=== PATIENT | female | born 1965 | race Caucasian/White ===

== ENCOUNTER 2016-05-01 07:40 | Outpatient (CLI) | payer OTHER, BC | END 2016-05-01 07:41 | disposition home or self-care (01) | DX: Z00.00 Encounter for general adult medical examination without abnormal findings (principal); R79.9 Abnormal finding of blood chemistry, unspecified; Z72.89 Other problems related to lifestyle; Z13.89 Encounter for screening for other disorder ==

== ENCOUNTER 2016-05-07 07:35 | Outpatient (CLI) | payer OTHER, BC | END 2016-05-07 07:36 | disposition home or self-care (01) | DX: D17.1 Benign lipomatous neoplasm of skin and subcutaneous tissue of trunk (principal); Z80.41 Family history of malignant neoplasm of ovary ==

== ENCOUNTER 2017-04-02 10:30 | Outpatient (CLI) | payer OTHER, BC ==
--- NOTE | 2017-04-02 11:12 | XRAY Report ---
LEFT HAND: 04/02/2017 COMPARISON: None. INDICATION: Left hand pain. TECHNIQUE: Three views of the left hand. FINDINGS: There is a mildly displaced fracture of the second metacarpal. No other acute bone findings are seen. There is overlying soft tissue swelling. No radiopaque foreign body. IMPRESSION: SECOND METACARPAL FRACTURE. JOB #: [id number] EXT JOB #: [id number] [facility]
== END 2017-04-02 10:31 | disposition home or self-care (01) ==
LOC: DI 10:30
PROVIDERS: ATTEND Internal Medicine
DX: S62.301A Unspecified fracture of second metacarpal bone, left hand, initial encounter for closed fracture (principal)

== ENCOUNTER 2017-09-29 11:56 | Outpatient (CLI) | payer OTHER, BC ==
--- NOTE | 2017-09-30 10:54 | Mammography Report ---
DIGITAL SCREENING MAMMOGRAM: 09/29/2017 TECHNIQUE: Bilateral digital CC and MLO projections. COMPARISON: 04/24/2016, 03/28/2015, 02/28/2014, 11/03/2012, 05/29/2011 and 06/27/2009. FINDINGS: There are scattered fibroglandular densities. There is no dominant mass, architectural distortion, skin thickening, suspicious microcalcifications or interval change. IMPRESSION: NEGATIVE. BI-RADS CATEGORY 1 - NEGATIVE. SUGGEST RETURN TO ROUTINE SCREENING IN 12 MONTHS. STANDARD QUALIFYING STATEMENTS: 1. This examination was reviewed with the aid of Computer-Aided Detection (CAD). 2. A negative or benign imaging report should not delay biopsy if clinically suspicious findings are present. Consider surgical consultation if warranted. More than 5% of cancers are not identified by imaging. 3. Dense breasts may obscure an underlying neoplasm. TD: 09/30/2017 09:58
== END 2017-09-29 11:57 | disposition home or self-care (01) ==
LOC: DI.N 11:56
PROVIDERS: ATTEND Physician Assistant Medical
DX: Z12.31 Encounter for screening mammogram for malignant neoplasm of breast (principal)
CPT/HCPCS: 77067

== ENCOUNTER 2018-07-04 14:34 | Outpatient (CLI) | payer OTHER, BC ==
--- NOTE | 2018-07-05 00:29 | XRAY Report ---
Reason: RIB PAIN Procedure Date: 07/04/2018 Accession Number: [id number] / [id number] Procedure: WCP - Ribs Bilat w/Chest 4 View CPT Code: FULL RESULT: EXAM: BILATERAL RIB RADIOGRAPHY EXAM DATE: 07/04/2018 02:57 PM. CLINICAL HISTORY: RIB PAIN. COMPARISON: None. TECHNIQUE: 1 view of the chest and 4 views of the ribs. FINDINGS: Bones: Normal. No fracture or bone lesion. Lungs: No focal opacities. No pneumothorax. No pleural effusions. Mediastinum: Heart and mediastinal contours are unremarkable. Other: None. IMPRESSION: Normal chest and rib radiography. [facility]
== END 2018-07-04 14:35 | disposition home or self-care (01) ==
LOC: DI.WCP 14:34
PROVIDERS: ATTEND Family Medicine
DX: R07.81 Pleurodynia (principal)
CPT/HCPCS: 71111

== ENCOUNTER 2019-03-22 08:37 | Outpatient (CLI) | payer OTHER, BC ==
--- NOTE | 2019-03-22 09:07 | Mammography Report ---
Reason: ROUTINE MAMMO Procedure Date: 03/22/2019 Accession Number: [id number] / [id number] Procedure: MGN - Screening Mammo Dig Bilat CPT Code: Final Report FULL RESULT: EXAM: Screening Mammo Dig Bilat DATE: 03/22/2019 8:59 AM CLINICAL HISTORY: The patient is an asymptomatic 53-year-old female presenting for screening mammography. No known family history of breast cancer. TECHNIQUE: (B) - Bilateral CC and MLO views were obtained. COMPARISON: 05/29/2011 and 06/27/2009 PARENCHYMAL PATTERN: (A) - The breasts demonstrate scattered fibroglandular densities bilaterally. FINDINGS: The pattern of asymmetry is stable given positional variation and interval involution. There are no suspicious masses, calcifications, or areas of distortion. IMPRESSION: Negative examination. BI-RADS category 1. RECOMMENDATION: (ANNUAL) - Recommend routine annual screening mammography. BI-RADS CATEGORY: (1) - Negative. STANDARD QUALIFYING STATEMENTS: 1. This examination was not reviewed with the aid of Computer-Aided Detection (CAD). 2. A negative or benign imaging report should not preclude biopsy if clinically suspicious findings are present. 3. Dense breasts may obscure an underlying neoplasm.
== END 2019-03-22 08:38 | disposition home or self-care (01) ==
LOC: DI.N 08:37
DX: Z12.31 Encounter for screening mammogram for malignant neoplasm of breast (principal)
CPT/HCPCS: 77067

== ENCOUNTER 2020-02-26 15:10 | Outpatient (CLI) | payer BC ==
--- NOTE | 2020-02-27 14:36 | Mammography Report ---
BILATERAL DIGITAL SCREENING MAMMOGRAM 3D/2D: 02/26/2020 CLINICAL: Routine screening. Comparison is made to exams dated: 03/22/2019 mammogram, 09/29/2017 mammogram, 04/24/2016 mammogram, 1 05/29/2014 mammogram, 02/28/2014 mammogram, and 11/03/2012 mammogram - [facility]. The re are scattered fibroglandular elements in both breasts. No significant masses, calcifications, or other findings are seen in either breast. There has been no significant interval change. IMPRESSION: NEGATIVE There is no mammographic evidence of malignancy. A 1 year screening mammogram is recommended. This exam was interpreted at Station ID: [id number]. NOTE: For mammograms, a report in lay terms will be sent to the patient. Approximately 15% of breast malignancies will not be visualized mammographically. In the management of a palpable breast mass, a negative mammogram must not discourage biopsy of a clinically suspicious lesion. Electronically Signed By: Luis hernández/adis:02/26/2020 18:03:10 ACR BI-RADS Category 1: Negative 3341F PARENCHYMAL PATTERN: (A) - The breast(s) demonstrate(s) scattered fibroglandular densities. BI-RADS CATEGORY: (1) - 1 RECOMMENDATION: (ANNUAL) - Recommend routine annual screening mammography. [id number] 1 year screening LATERALITY: (B)
== END 2020-02-26 15:11 | disposition home or self-care (01) ==
LOC: DI.N 15:10
DX: Z12.31 Encounter for screening mammogram for malignant neoplasm of breast (principal)
CPT/HCPCS: 77063; 77067

== ENCOUNTER 2020-03-26 14:10 | Outpatient (CLI) | payer BC | END 2020-03-26 14:11 | disposition home or self-care (01) | LOC: COV 14:10 | PROVIDERS: ATTEND Family Medicine | DX: Z20.828 Contact with and (suspected) exposure to other viral communicable diseases (principal) ==

== ENCOUNTER 2020-04-01 21:22 | Outpatient (CLI) | payer BC | END 2020-04-01 21:23 | disposition home or self-care (01) | LOC: COV 21:22 | PROVIDERS: ATTEND Family Medicine | DX: U07.1 COVID-19 (principal) ==

== ENCOUNTER 2021-08-06 12:28 | Outpatient (CLI) | payer OTHER ==
--- NOTE | 2021-08-06 16:59 | Ultrasound Report ---
PROCEDURE: Pelvic w/Transvaginal INDICATIONS: PELVIC PAIN, ABD PAIN TECHNIQUE: Real-time scanning was performed of the pelvic organs, with image documentation. Additional endovagi nal scanning was necessary due to incomplete visualization of the adnexal and endometrial structures by transabdominal scanning. COMPARISON: None. FINDINGS: Limited scanning through the kidneys shows no hydronephrosis. No pathologic free abdominal or pelvic fluid. Uterus: Uterus is normal in size at 7.2 x 2.9 x 5.4 cm. Uterus is anteverted. The endometrium measur es 2.0 mm in combined thickness. There is a 0.7 x 0 0.5 to 0.5 cm mid anterior intramural uterine fi broid. Ovaries: Ovary suboptimally visualized. Right ovary measures 2.9 x 1.2 x 1.3 cm total volume of 1.8 cc. Left ovary measures 2.3 x 1.4 x 1.4 cm with total volume of 2.3 cc. No ovarian masses identified. Other: No free pelvic fluid. IMPRESSION: 1. Small uterine fibroids. 2. Ovary suboptimally visualized. No gross sonographic abnormality identified in the ovaries. Reviewed by: Maritza Oliva MD, PhD on 08/06/2021 4:58 PM PDT Approved by: Maritza Oliva MD, PhD on 08/06/2021 4:58 PM PDT Station ID: [id number]
--- NOTE | 2021-08-06 18:13 | Ultrasound Report ---
PROCEDURE: Abdomen Complete INDICATIONS: PELVIC PAIN, ABD PAIN TECHNIQUE: Real-time scanning was performed of the abdominal and retroperitoneal organs, with image documentatio n. COMPARISON: Prior abdominal ultrasound, 05/07/2016. Correlation is made with the accompanying pelvic ultrasound, 08/06/2021. FINDINGS: Liver: Liver is normal in size and homogeneous in echotexture. Gallbladder: No gallstones or significant sludge can be seen. The gallbladder wall does not appear th ickened. There is no specific pericholecystic fluid. The sonographic Mueller's sign is negative. Biliary ducts: Intrahepatic bile ducts are non-dilated. Extrahepatic bile duct caliber measures 6 m m. Normal is 6-7 mm or less in diameter, or 10 mm or less post-cholecystectomy. Pancreas: Visualized portions of the pancreas are sonographically normal. Spleen: Spleen is normal in size and homogeneous in echotexture. Kidneys: Kidneys are normal in size and echotexture. Right kidney measures 11.2 cm long; left kidne y measures 11.9 cm long. No hydronephrosis or nephrolithiasis. No solid masses. Aorta: Visualized aorta is normal in caliber at less than 3 cm. Iliacs: Proximal common iliac arteries are normal in caliber at less than 2.5 cm. IVC: Intrahepatic inferior vena cava is patent. Miscellaneous: No free abdominal fluid. Overall scan quality is limited by bowel gas. IMPRESSION: Normal-appearing gallbladder. The common bile duct measures up to upper limits of normal, without kateryna dilatation. Reviewed by: Angel Curry MD on 08/06/2021 5:12 PM [facility] Approved by: Angel Curry MD on 08/06/2021 5:12 PM [facility] Station ID: [id number]
== END 2021-08-06 12:29 | disposition home or self-care (01) ==
LOC: DI 12:28
PROVIDERS: ATTEND Internal Medicine
DX: D25.1 Intramural leiomyoma of uterus (principal)